=== PATIENT | female | born 1990 | race Two or more races ===

== ENCOUNTER 2020-10-31 14:30 | Inpatient (IN) | payer OTHER ==
[~2020-10-31] VITALS: Ht 167.6 cm; Wt 85.7 kg
== END 2020-11-20 11:48 | disposition home or self-care (01) | DRG 798 ==
LOC: OB/GYN 11-16 14:30 → LDR 11-17 12:29 → OB/GYN 11-17 12:29
PROVIDERS: ADMIT Obstetrics & Gynecology; ATTEND Obstetrics & Gynecology
PROC: 4A1HXFZ Monitoring of Products of Conception, Cardiac Rhythm, External Approach (ICD-10-PCS; 2020-11-17)
PROC: 10E0XZZ Delivery of Products of Conception, External Approach (ICD-10-PCS; principal; 2020-11-18)
PROC: 0HQ9XZZ Repair Perineum Skin, External Approach (ICD-10-PCS; 2020-11-18)
PROC: 0UB70ZZ Excision of Bilateral Fallopian Tubes, Open Approach (ICD-10-PCS; 2020-11-19)
DX: O48.0 Post-term pregnancy (principal); Z37.0 Single live birth; O70.0 First degree perineal laceration during delivery; O99.824 Streptococcus B carrier state complicating childbirth; Z3A.40 40 weeks gestation of pregnancy; Z30.2 Encounter for sterilization